=== PATIENT | female | born 1965 ===

== ENCOUNTER 2022-03-06 14:45 | Observation (INO) | payer OTHER ==
[2022-03-06] MEDS ORDERED: SODIUM CHLORIDE 0.9% 1,000 ML IV STA (14:47)
--- NOTE | 2022-03-06 15:00 | ED ---
Overdose HPI - General Chief Complaint: Overdose Stated Complaint: unresponsive Time Seen by Provider: 03/06/22 14:45 Source: EMS, RN notes reviewed Mode of arrival: EMS Limitations: no limitations - History of Present Illness Initial Comments: 56-year-old female with an apparent history of opioid abuse who was found unresponsive by her son at home. EMS was called. Patient was given IM as well as intranasal Narcan initially with no responsive upon arrival here she became more awake and alert but she denied any overdose or medications. No nausea no vomiting no focal deficits noted. No trauma no other complaint modifying factors at this time MD Complaint: other - Related Data Home Medications Medication Instructions Recorded Confirmed Baclofen [Lioresal] 20 mg PO HS PRN 03/06/22 03/06/22 Gabapentin [Neurontin] 400 mg PO TID PRN 03/06/22 03/06/22 Omeprazole 20 mg PO BID 03/06/22 03/06/22 PARoxetine HCL 40 mg PO DIRECTED 03/06/22 03/06/22 Triamcinolone 0.1% Cream [Kenalog 1 applicatio TOPICAL BID PRN 03/06/22 03/06/22 0.1% Cream] buPROPion XL [Wellbutrin XL] 150 mg PO DIRECTED 03/06/22 03/06/22 Allergies Allergy/AdvReac Type Severity Reaction Status Date / Time No Known Allergies Allergy Verified 03/06/22 18:51 Review of Systems ROS Statement: Those systems with pertinent positive or pertinent negative responses have been documented in the HPI. ROS Other: All systems not noted in ROS Statement are negative. Past Medical History Past Medical History: No Reported History History of Any Multi-Drug Resistant Organisms: None Reported Past Surgical History: No Surgical Hx Reported Past Psychological History: No Psychological Hx Reported Smoking Status: Current every day smoker Past Alcohol Use History: None Reported Past Drug Use History: Marijuana General Exam - General Exam Comments Initial Comments: Is a well-developed well-nourished awake alert but lethargic female Limitations: no limitations General appearance: alert, lethargic Head exam: Present: atraumatic, normocephalic, normal inspection Eye exam: Present: normal appearance, PERRL, EOMI. Absent: scleral icterus, conjunctival injection, periorbital swelling ENT exam: Present: normal exam, mucous membranes moist Neck exam: Present: normal inspection, full ROM, other (No stridor JVD or bruits). Absent: tenderness, meningismus, lymphadenopathy Respiratory exam: Present: normal lung sounds bilaterally. Absent: respiratory distress, wheezes, rales, rhonchi, stridor Cardiovascular Exam: Present: regular rate, normal rhythm, normal heart sounds. Absent: systolic murmur, diastolic murmur, rubs, gallop, clicks GI/Abdominal exam: Present: soft, normal bowel sounds. Absent: distended, tenderness, guarding, rebound, rigid Extremities exam: Present: normal inspection, full ROM, normal capillary refill. Absent: tenderness, pedal edema, joint swelling, calf tenderness Back exam: Present: normal inspection Neurological exam: Present: alert, oriented X3, CN II-XII intact Psychiatric exam: Present: normal affect, normal mood Skin exam: Present: warm, dry, intact, normal color. Absent: rash Course Vital Signs 03/06/22 03/06/22 03/06/22 14:46 15:54 16:00 Temperature 97.3 F L Pulse Rate 80 50 L 54 L Respiratory 18 14 16 Rate Blood Pressure 143/103 94/67 95/64 O2 Sat by Pulse 95 98 97 Oximetry 03/06/22 03/06/22 17:00 18:00 Temperature Pulse Rate 69 64 Respiratory 16 14 Rate Blood Pressure 90/70 92/55 O2 Sat by Pulse Oximetry - Reevaluation(s) Reevaluation #1: 03/06/22 20:11 I did reevaluate patient on multiple occasions she does respond to verbal stimulus he was noted to have a relatively low blood pressure but she did respond to fluids also warming. CT read by me was negative for acute processes as well as the chest x-ray. Patient does have a positive urine drug screen. The presentation and findings are consistent with overdose of medication. The patient is maintaining her vital signs and airway. She will be admitted I did discuss case with Dr. Clayton. On several occasions no family members were pre sent when I did reevaluate the patient. Medical Decision Making - Lab Data Result diagrams: 03/06/22 14:56 03/06/22 14:56 Lab Results 03/06/22 03/06/22 03/06/22 Range/Units 14:56 14:56 14:56 WBC 6.4 (3.8-10.6) k/uL RBC 4.59 (3.80-5.40) m/uL Hgb 14.6 (11.4-16.0) gm/dL Hct 43.5 (34.0-46.0) % MCV 94.8 (80.0-100.0) fL MCH 31.9 (25.0-35.0) pg MCHC 33.6 (31.0-37.0) g/dL RDW 12.8 (11.5-15.5) % Plt Count 146 L (150-450) k/uL MPV 9.0 Neutrophils % 73 % Lymphocytes % 18 % Monocytes % 6 % Eosinophils % 2 % Basophils % 1 % Neutrophils # 4.6 (1.3-7.7) k/uL Lymphocytes # 1.2 (1.0-4.8) k/uL Monocytes # 0.4 (0-1.0) k/uL Eosinophils # 0.1 (0-0.7) k/uL Basophils # 0.0 (0-0.2) k/uL PT 10.7 (9.0-12.0) sec INR 1.0 (<1.2) Sodium 141 (137-145) mmol/L Potassium 4.2 (3.5-5.1) mmol/L Chloride 110 H (98-107) mmol/L Carbon Dioxide 25 (22-30) mmol/L Anion Gap 6 mmol/L BUN 14 (7-17) mg/dL Creatinine 1.09 H (0.52-1.04) mg/dL Est GFR (CKD-EPI)AfAm 66 (>60 ml/min/1.73 sqM) Est GFR (CKD-EPI)NonAf 58 (>60 ml/min/1.73 sqM) Glucose 102 H (74-99) mg/dL Plasma Lactic Acid Jonatan (0.7-2.0) mmol/L Calcium 9.5 (8.4-10.2) mg/dL Total Bilirubin 0.7 (0.2-1.3) mg/dL AST 23 (14-36) U/L ALT 13 (4-34) U/L Alkaline Phosphatase 118 (38-126) U/L Creatine Kinase 58 (30-135) U/L Troponin I (0.000-0.034) ng/mL Total Protein 6.8 (6.3-8.2) g/dL Albumin 4.4 (3.5-5.0) g/dL Lipase 86 (23-300) U/L Urine Color Urine Appearance (Clear) Urine pH (5.0-8.0) Ur Specific [place] (1.001-1.035) Urine Protein (Negative) Urine Glucose (UA) (Negative) Urine Ketones (Negative) Urine Blood (Negative) Urine Nitrite (Negative) Urine Bilirubin (Negative) Urine Urobilinogen (<2.0) mg/dL Ur Leukocyte Esterase (Negative) Salicylates <1.0 mg/dL Urine Opiates Screen (NotDetected) Ur Oxycodone Screen (NotDetected) Urine Methadone Screen (NotDetected) Ur Propoxyphene Screen (NotDetected) Acetaminophen <10.0 ug/mL Ur Barbiturates Screen (NotDetected) U Tricyclic Antidepress (NotDetected) Ur Phencyclidine Scrn (NotDetected) Ur Amphetamines Screen (NotDetected) U Methamphetamines Scrn (NotDetected) U Benzodiazepines Scrn (NotDetected) Urine Cocaine Screen (NotDetected) U Marijuana (THC) Screen (NotDetected) Serum Alcohol <10 mg/dL 03/06/22 03/06/22 03/06/22 Range/Units 14:56 14:56 17:11 WBC (3.8-10.6) k/uL RBC (3.80-5.40) m/uL Hgb (11.4-16.0) gm/dL Hct (34.0-46.0) % MCV (80.0-100.0) fL MCH (25.0-35.0) pg MCHC (31.0-37.0) g/dL RDW (11.5-15.5) % Plt Count (150-450) k/uL MPV Neutrophils % % Lymphocytes % % Monocytes % % Eosinophils % % Basophils % % Neutrophils # (1.3-7.7) k/uL Lymphocytes # (1.0-4.8) k/uL Monocytes # (0-1.0) k/uL Eosinophils # (0-0.7) k/uL Basophils # (0-0.2) k/uL PT (9.0-12.0) sec INR (<1.2) Sodium (137-145) mmol/L Potassium (3.5-5.1) mmol/L Chloride (98-107) mmol/L Carbon Dioxide (22-30) mmol/L Anion Gap mmol/L BUN (7-17) mg/dL Creatinine (0.52-1.04) mg/dL Est GFR (CKD-EPI)AfAm (>60 ml/min/1.73 sqM) Est GFR (CKD-EPI)NonAf (>60 ml/min/1.73 sqM) Glucose (74-99) mg/dL Plasma Lactic Acid Jonatan 1.6 (0.7-2.0) mmol/L Calcium (8.4-10.2) mg/dL Total Bilirubin (0.2-1.3) mg/dL AST (14-36) U/L ALT (4-34) U/L Alkaline Phosphatase (38-126) U/L Creatine Kinase (30-135) U/L Troponin I <0.012 (0.000-0.034) ng/mL Total Protein (6.3-8.2) g/dL Albumin (3.5-5.0) g/dL Lipase (23-300) U/L Urine Color Yellow Urine Appearance Clear (Clear) Urine pH 5.5 (5.0-8.0) Ur Specific [place] 1.014 (1.001-1.035) Urine Protein Trace H (Negative) Urine Glucose (UA) Negative (Negative) Urine Ketones Negative (Negative) Urine Blood Negative (Negative) Urine Nitrite Negative (Negative) Urine Bilirubin Negative (Negative) Urine Urobilinogen <2.0 (<2.0) mg/dL Ur Leukocyte Esterase Negative (Negative) Salicylates mg/dL Urine Opiates Screen Not Detected (NotDetected) Ur Oxycodone Screen Not Detected (NotDetected) Urine Methadone Screen Detected H (NotDetected) Ur Propoxyphene Screen Not Detected (NotDetected) Acetaminophen ug/mL Ur Barbiturates Screen Not Detected (NotDetected) U Tricyclic Antidepress Not Detected (NotDetected) Ur Phencyclidine Scrn Not Detected (NotDetected) Ur Amphetamines Screen Not Detected (NotDetected) U Methamphetamines Scrn Not Detected (NotDetected) U Benzodiazepines Scrn Detected H (NotDetected) Urine Cocaine Screen Not Detected (NotDetected) U Marijuana (THC) Screen Detected H (NotDetected) Serum Alcohol mg/dL - EKG Data -: EKG Interpreted by Me EKG shows normal: sinus rhythm EKG Comments: EKG interpreted by me shows sinus bradycardia rate 56 IL interval 04[birth year]1969 QRS duration 85 daily since QTC 422/413 nonspecific T-wave configuration Disposition Clinical Impression: Drug overdose, Altered mental status, Hypotensive episode, Dehydration Disposition: ADMITTED IP TO THIS [facility] Condition: Fair Referrals: None,Stated [Primary Care Provider] - 1-2 days Decision Date: 03/06/22 Decision Time: 20:00
[2022-03-06 16:02] LABS: Basophils % (A) 1 %; Eosinophils # (A) 0.1 k/uL (0-0.7); Eosinophils % (A) 2 %; HCT 43.5 % (34.0-46.0); HGB 14.6 gm/dL (11.4-16.0); Lymphocytes # (A) 1.2 k/uL (1.0-4.8); Lymphocytes % (A) 18 %; MCH 31.9 pg (25.0-35.0); MCHC 33.6 g/dL (31.0-37.0); MCV 94.8 fL (80.0-100.0); Monocytes # (A) 0.4 k/uL (0-1.0); Monocytes % (A) 6 %; Neutrophils # (A) 4.6 k/uL (1.3-7.7); Neutrophils % (A) 73 %; Platelet Count 146 k/uL (150-450); RBC 4.59 m/uL (3.80-5.40); RDW 12.8 % (11.5-15.5); WBC 6.4 k/uL (3.8-10.6)
[2022-03-06 16:12] LABS: Prothrombin Time 10.7 sec (9.0-12.0)
--- NOTE | 2022-03-06 16:23 | XR ---
EXAMINATION TYPE: XR chest 1V portable DATE OF EXAM: 03/06/2022 COMPARISON: NONE HISTORY: Cough TECHNIQUE: Single view FINDINGS: Heart and mediastinum are normal. Lungs are clear of consolidation. There is slight coarsen ing of interstitial markings. There is suboptimal inspiration. There are chest leads. IMPRESSION: Suboptimal inspiration. Mild increased interstitial markings without consolidation. No he art failure.
[2022-03-06 16:41] LABS: ALT 13 U/L (4-34); AST 23 U/L (14-36); Acetaminophen <10.0 ug/mL; African American GFR (CKD) 66 (>60 ml/min/1.73 sqM); Albumin 4.4 g/dL (3.5-5.0); Alcohol <10 mg/dL; Alkaline Phosphatase 118 U/L (38-126); Anion Gap 6 mmol/L; Blood Urea Nitrogen 14 mg/dL (7-17); Calcium 9.5 mg/dL (8.4-10.2); Carbon Dioxide 25 mmol/L (22-30); Chloride 110 mmol/L (98-107); Creatine Kinase 58 U/L (30-135); Glucose 102 mg/dL (74-99); Lipase 86 U/L (23-300); Non-African American GFR(CKD) 58 (>60 ml/min/1.73 sqM); Potassium 4.2 mmol/L (3.5-5.1); Salicylate <1.0 mg/dL; Sodium 141 mmol/L (137-145); Total Bilirubin 0.7 mg/dL (0.2-1.3); Total Protein 6.8 g/dL (6.3-8.2)
--- NOTE | 2022-03-06 16:57 | CT ---
EXAMINATION TYPE: CT brain wo con DATE OF EXAM: 03/06/2022 COMPARISON: None HISTORY: Altered mental status CT DLP: 1192.4 mGycm Automated exposure control for dose reduction was used. Images of the brain obtained with no contrast. Ventricles of normal size. There is no mass effect or midline shift. No sign of intracranial hemorrha ge. Calvarium is intact. There is normal aeration of the mastoid sinuses. IMPRESSION: Negative unenhanced head CT scan.
[2022-03-06 17:23] LABS: Appearance,Urine Clear (Clear); Bilirubin,Urine Negative (Negative); Blood,Urine Negative (Negative); Color,Urine Yellow; Glucose,Urine (UA) Negative (Negative); Ketones,Urine Negative (Negative); Leukocyte Esterase,Urine Negative (Negative); Nitrite,Urine Negative (Negative); PH, Urine 5.5 (5.0-8.0); Protein,Urine Trace (Negative); Specific Gravity,Urine 1.014 (1.001-1.035); Urobilinogen,Urine <2.0 mg/dL (<2.0)
[2022-03-06 17:36] LABS: Amphetamine Screen,Urine Not Detected (NotDetected); Barbiturate Screen,Urine Not Detected (NotDetected); Benzodiazepines Screen,Urine Detected (NotDetected); Cocaine Screen,Urine Not Detected (NotDetected); Methadone Screen, Urine Detected (NotDetected); Opiate Screen,Urine Not Detected (NotDetected); Oxycodone Screen, Urine Not Detected (NotDetected); Phencyclidine Screen,Urine Not Detected (NotDetected); Tricyclic Antidepressant,Urine Not Detected (NotDetected); Urn Cannabinoid Scrn Detected (NotDetected)
[2022-03-06] MEDS ORDERED: NALOXONE 0.4 MG/ML 1 ML VIAL IVP STA (18:05)
[2022-03-06] MEDS ORDERED: NALOXONE 0.4 MG/ML 1 ML VIAL IV PRN (20:13)
[2022-03-06] MEDS ORDERED: SODIUM CHLORIDE 0.9% 1,000 ML IV SCH (20:15)
[2022-03-06] MEDS ORDERED: DEXTROSE 50% SYRINGE 50 ML IVP STA (23:17)
[2022-03-06 23:18] LABS: Glucose,Whole Blood 60 mg/dL (70-110)
[2022-03-06 23:31] LABS: Glucose,Whole Blood 57 mg/dL (70-110)
[2022-03-06 23:48] LABS: Glucose,Whole Blood 70 mg/dL (70-110)
[2022-03-06 23:55] LABS: ABG Base Excess -0.5 mmol/L; ABG HCO3 25 mmol/L (21-25); ABG Oxygen Saturation 93.5 % (94-97); ABG PCO2 44 mmHg (35-45); ABG PH 7.36 (7.35-7.45); ABG PO2 65 mmHg (83-108); ABG TCO2 26 mmol/L (19-24); Allen Test Performed? Yes
--- NOTE | 2022-03-07 00:26 | P.HPIM ---
History of Present Illness H&P Date: 03/06/22 Chief Complaint: overdose 56 year old female , brought in by EMS after son found her unresponsive , he had concerns regarding seizures. EMS did give her narcan IM and intranasally en route with some increase responsiveness , she had to receive another dose while inthe ED , she continued to be groggy. she does not provide any meaningful history son over the phone, admits to history of heroin addiction, and currently taking benzo, and she is an active smoker, he is not sure what she could have taken , he reports concerns regarding possibility of seizure like activity, however, he is not sure. blood work over all unremarkable urine drug screen positive for methadone, benzo, marijuana alcohol, tylenol and salicylate level negative there is possibility of some social stressors, and depression. there is no clear evidence of suicidal attempt, but could not be completely ruled out. patient is reportedly depressed and currently visiting her son in [place] Review of Systems ROS unobtainable: due to mental status Past Medical History Past Medical History: No Reported History History of Any Multi-Drug Resistant Organisms: None Reported Past Surgical History: No Surgical Hx Reported Past Psychological History: No Psychological Hx Reported Smoking Status: Current every day smoker Past Alcohol Use History: None Reported Past Drug Use History: Marijuana - Past Family History family Family Medical History: Unable to Obtain Medications and Allergies Home Medications Medication Instructions Recorded Confirmed Type Baclofen [Lioresal] 20 mg PO HS PRN 03/06/22 03/06/22 History Gabapentin [Neurontin] 400 mg PO TID PRN 03/06/22 03/06/22 History Omeprazole 20 mg PO BID 03/06/22 03/06/22 History PARoxetine HCL 40 mg PO DIRECTED 03/06/22 03/06/22 History Triamcinolone 0.1% Cream [Kenalog 1 applicatio TOPICAL BID PRN 03/06/22 03/06/22 History 0.1% Cream] buPROPion XL [Wellbutrin XL] 150 mg PO DIRECTED 03/06/22 03/06/22 History Allergies Allergy/AdvReac Type Severity Reaction Status Date / Time No Known Allergies Allergy Verified 03/06/22 18:51 Physical Exam Vitals: Vital Signs Temp Pulse Resp BP Pulse Ox 03/06/22 18:00 64 14 92/55 03/06/22 17:00 69 16 90/70 03/06/22 16:00 54 L 16 95/64 97 03/06/22 15:54 50 L 14 94/67 98 03/06/22 14:46 97.3 F L 80 18 143/103 95 Intake and Output 03/06/22 03/06/22 03/06/22 06:59 14:59 22:59 Other: Weight 81.647 kg Constitutional: lethargic easily arousable, does not answer questions Eyes: Anicteric sclerae, moist conjunctiva, Pupils equal round reactive to light ENMT: NC/AT Oropharynx clear, no erythema, or exudates Neck: Supple, no masses, or JVD No carotid bruits No thyromegaly Lungs: Clear to auscultation Clear to percussion Normal respiratory effort, no accessory muscle use Cardiovascular: Heart regular in rate and rhythm, No murmurs, gallops, or rubs No peripheral edema Abdominal: Soft Nontender, no guarding, rebound or rigidity Abdomen moving with respiration Normoactive bowel sounds No hepatomegaly, No splenomegaly No palpable mass No abdominal wall hernia noted Skin: Normal temperature, tone, texture, turgor No induration No subcutaneous nodules No rash, lesions No ulcers Extremities: No digital cyanosis No clubbing Pedal pulses intact and symmetrical Radial pulses intact and symmetrical No calf tenderness Psychiatric: sleepy , easily arousable with verbal stimulation , does not answer any questions avoids eye contact Neuro unable to perform , does not cooperate, however moving all extremities spontaneously Lymphatics: no palpable cervical or supraclavicular , lymph nodes Results CBC & Chem 7: 03/06/22 14:56 03/06/22 14:56 Labs: Abnormal Lab Results - Last 24 Hours (Table) 03/06/22 03/06/22 03/06/22 Range/Units 14:56 14:56 17:11 Plt Count 146 L (150-450) k/uL Chloride 110 H (98-107) mmol/L Creatinine 1.09 H (0.52-1.04) mg/dL Glucose 102 H (74-99) mg/dL Urine Protein Trace H (Negative) Urine Methadone Screen Detected H (NotDetected) U Benzodiazepines Scrn Detected H (NotDetected) U Marijuana (THC) Screen Detected H (NotDetected) Assessment and Plan Assessment: drug overdose acute metabolic encephalopathy could not rule out suicidal attempt bed side sitter for safety psych consult seizure precautions s/p narcan ABG reviewed continue supportive care narcan PRN as needed CT brain no acute pathology full code DVT PPX heparin sc tid
[2022-03-07] MEDS ORDERED: DEXTROSE 50% SYRINGE 50 ML IVP ONE (02:09)
[2022-03-07 02:12] LABS: Glucose,Whole Blood 66 mg/dL (70-110)
[2022-03-07] MEDS: DEXTROSE 5%-0.45% NACL 1,000 ML IV SCH ×2 (02:28→14:16)
[2022-03-07 02:31] LABS: Glucose,Whole Blood 122 mg/dL (70-110)
[2022-03-07 03:31] LABS: Glucose,Whole Blood 109 mg/dL (70-110)
[2022-03-07 04:33] LABS: Glucose,Whole Blood 99 mg/dL (70-110)
[2022-03-07 05:31] LABS: Glucose,Whole Blood 91 mg/dL (70-110)
[2022-03-07 06:31] LABS: Glucose,Whole Blood 99 mg/dL (70-110)
[2022-03-07] MEDS: HEPARIN SODIUM,PORCINE/PF 5,000 UNIT/0.5 ML SYRINGE SQ SCH ×3 (09:03→23:57)
[2022-03-07] MEDS: LIDOCAINE 5% PATCH TOPICAL SCH (10:21)
[2022-03-07 11:48] LABS: Glucose,Whole Blood 109 mg/dL (70-110)
--- NOTE | 2022-03-07 12:10 | P.PN ---
Subjective Progress Note Date: 03/07/22 Principal diagnosis: overdose Hospital Course: 56-year-old female with history of possible depression presented with unresponsiveness and altered mental status. Patient also has a history of heroin addiction and has been taking benzos at home. She last remember being at her son's house, and taking Xanax and possible opiates. She claims that she had no thoughts of harming herself. Urine drug screen positive for methadone, benzos, marijuana. Psychiatry evaluation pending. CT head showed no acute abnormalities. Subjective: Patient seen and examined at bedside. No acute events overnight. She still feels groggy, but a little alert. She denies any chest pain, shortness of breath, abdominal pain, urinary or bowel complaints. Pertinent positives and negatives as discussed above, a complete review of systems was performed and all other systems are negative. Vitals Signs Reviewed. General: nontoxic, no distress, appears at stated age Derm: warm, dry Head: atraumatic, normocephalic, symmetric Eyes: EOMI, no lid lag, anicteric sclera Mouth: no lip lesion, mucus membranes moist Cardiovascular: S1S2 reg, no murmur Lungs: CTA bilateral, no rhonchi, no rales , no accessory muscle use Abdominal: soft, nontender to palpation, no guarding, no appreciable organomegaly Ext: no gross muscle atrophy, no edema, no contractures Neuro: CN II-XI grossly intact, no focal neuro deficits Psych: Appears somnolent Assessment and Plan: Drug overdose, likely unintentional Acute metabolic encephalopathy - resolving -Bedside sitter -Psychiatry consult -Seizure precautions -Supportive care -Narcan when necessary -CT head normal -Appreciated psychiatry recommendations with regards to depression medications DVT ppx: Subcutaneous heparin Code status: Full Code Anticipated discharge place: Pending psychiatry evaluation Anticipated discharge time: Pending clinical course Objective - Vital Signs Vital signs: Vital Signs Temp 97.7 F 03/07/22 08:55 Pulse 84 03/07/22 09:35 Resp 16 03/07/22 09:35 BP 130/84 03/07/22 08:55 Pulse Ox 94 L 03/07/22 08:55 FiO2 Intake & Output 03/06/22 03/07/22 03/07/22 18:59 06:59 18:59 Weight 81.647 kg 81.647 kg Other: # Voids 1 - Labs CBC & Chem 7: 03/06/22 14:56 03/06/22 14:56 Labs: Abnormal Lab Results - Last 24 Hours (Table) 03/06/22 03/06/22 03/06/22 Range/Units 14:56 14:56 17:11 Plt Count 146 L (150-450) k/uL ABG pO2 (83-108) mmHg ABG Total CO2 (19-24) mmol/L ABG O2 Saturation (94-97) % Chloride 110 H (98-107) mmol/L Creatinine 1.09 H (0.52-1.04) mg/dL Glucose 102 H (74-99) mg/dL POC Glucose (mg/dL) (70-110) mg/dL Urine Protein Trace H (Negative) Urine Methadone Screen Detected H (NotDetected) U Benzodiazepines Scrn Detected H (NotDetected) U Marijuana (THC) Screen Detected H (NotDetected) 03/06/22 03/06/22 03/06/22 Range/Units 23:15 23:29 23:50 Plt Count (150-450) k/uL ABG pO2 65 L (83-108) mmHg ABG Total CO2 26 H (19-24) mmol/L ABG O2 Saturation 93.5 L (94-97) % Chloride (98-107) mmol/L Creatinine (0.52-1.04) mg/dL Glucose (74-99) mg/dL POC Glucose (mg/dL) 60 L 57 L (70-110) mg/dL Urine Protein (Negative) Urine Methadone Screen (NotDetected) U Benzodiazepines Scrn (NotDetected) U Marijuana (THC) Screen (NotDetected) 03/07/22 03/07/22 Range/Units 02:06 02:24 Plt Count (150-450) k/uL ABG pO2 (83-108) mmHg ABG Total CO2 (19-24) mmol/L ABG O2 Saturation (94-97) % Chloride (98-107) mmol/L Creatinine (0.52-1.04) mg/dL Glucose (74-99) mg/dL POC Glucose (mg/dL) 66 L 122 H (70-110) mg/dL Urine Protein (Negative) Urine Methadone Screen (NotDetected) U Benzodiazepines Scrn (NotDetected) U Marijuana (THC) Screen (NotDetected)
[2022-03-07] MEDS ORDERED: ONDANSETRON 4 MG/2 ML VIAL IVP PRN (12:35)
[2022-03-07] MEDS: PANTOPRAZOLE 40 MG TABLET PO SCH (14:14)
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
[2022-03-07 16:45] LABS: Glucose,Whole Blood 107 mg/dL (70-110)
[2022-03-07 19:58] LABS: Glucose,Whole Blood 93 mg/dL (70-110)
[2022-03-08] MEDS: DEXTROSE 5%-0.45% NACL 1,000 ML IV SCH ×2 (05:57→17:07)
[2022-03-08 05:58] LABS: Glucose,Whole Blood 96 mg/dL (70-110)
[2022-03-08] MEDS: PANTOPRAZOLE 40 MG TABLET PO SCH (06:35)
[2022-03-08 08:05] VITALS: RESP 18; TEMP 98.1
[2022-03-08] MEDS: LIDOCAINE 5% PATCH TOPICAL SCH (08:05)
[2022-03-08] MEDS: HEPARIN SODIUM,PORCINE/PF 5,000 UNIT/0.5 ML SYRINGE SQ SCH ×2 (08:06→17:07)
[2022-03-08 11:25] LABS: Glucose,Whole Blood 87 mg/dL (70-110)
[2022-03-08] MEDS ORDERED: PAROXETINE HCL 40 MG PO SCH (14:00)
[2022-03-08] MEDS ORDERED: buPROPion XL 150 MG TAB.ER.24H PO SCH (14:00)
--- NOTE | 2022-03-08 14:00 | P.PN ---
Subjective Progress Note Date: 03/08/22 Principal diagnosis: overdose Hospital Course: 56-year-old female with history of mood disorder presented with unresponsiveness and altered mental status. Patient also has a history of heroin addiction and has been taking benzos at home. She last remember being at her son's house, and taking Xanax and possible opiates. She claims that she had no thoughts of harmi ng herself. Urine drug screen positive for methadone, benzos, marijuana. Per nursing, patient's son found her unresponsive with a weak pulse, and he did initiate CPR as well. She was not pulseless at any point. Per report, patient didn't respond to Narcan by EMS. Psychiatry evaluation, no further inpatient psychiatric therapy needed. CT head showed no acute abnormalities. Subjective: Patient seen and examined at bedside. No acute events overnight. She still feeling nauseous whenever she tries to eat. She denies any chest pain, shortness of breath, abdominal pain, urinary or bowel complaints. Pertinent positives and negatives as discussed above, a complete review of systems was performed and all other systems are negative. Vitals Signs Reviewed. General: nontoxic, no distress, appears at stated age Derm: warm, dry Head: atraumatic, normocephalic, symmetric Eyes: EOMI, no lid lag, anicteric sclera Mouth: no lip lesion, mucus membranes moist Cardiovascular: S1S2 reg, no murmur Lungs: CTA bilateral, no rhonchi, no rales , no accessory muscle use Abdominal: soft, nontender to palpation, no guarding, no appreciable organomegaly Ext: no gross muscle atrophy, no edema, no contractures Neuro: CN II-XI grossly intact, no focal neuro deficits Psych: Appears somnolent Assessment and Plan: Drug overdose, likely unintentional Acute metabolic encephalopathy -resolved Polysubstance abuse -Psychiatry consult, no need for inpatient psychiatry admission -Seizure precautions -Supportive care -Narcan when necessary -CT head normal Mood disorder -Restarted bupropion and paroxetine Nausea -When necessary Zofran -Encourage oral intake DVT ppx: Subcutaneous heparin Code status: Full Code Anticipated discharge place: Home Anticipated discharge time: When nausea subsides Objective - Vital Signs Vital signs: Vital Signs Temp 98.1 F 03/08/22 08:01 Pulse 66 03/08/22 12:07 Resp 18 03/08/22 12:07 BP 151/74 03/08/22 12:07 Pulse Ox 98 03/08/22 12:07 FiO2 21 03/07/22 19:33 Intake & Output 03/07/22 03/08/22 03/08/22 18:59 06:59 18:59 Intake Total 650 Output Total 500 Balance 150 Intake: Intake, IV Titration 600 Amount Dextrose 5%-0.45% NaCl 1, 600 000 ml @ 75 mls/hr IV . [id number] [facility] Rx#:[id number] Oral 50 Output: Urine 500 Other: Voiding Method Bedside Commode Bedside Commode # Voids 2 - Labs CBC & Chem 7: 03/06/22 14:56 03/06/22 14:56
--- NOTE | 2022-03-08 15:27 | P.DS ---
Providers Date of admission: 03/06/22 20:13 Expected date of discharge: 03/08/22 Attending physician: Pratibha Summers MD Consults: 03/07/22 00:26 Consult Physician Routine Consulting Provider: Randall Hunter Consult Reason/Comments: Drug overdose, rule out suicidal Do you want consulting provider notified?: Yes, Notify in am Primary care physician: Stated None Hospital Course: Discharge Diagnosis: Unintentional drug overdose Acute metabolic encephalopathy Polysubstance abuse Mood disorder Nausea Hospital Course: 56-year-old female with history of mood disorder presented with unresponsiveness and altered mental status. Patient also has a history of heroin addiction and has been taking benzos at home. She last remember being at her son's house, and taking Xanax and possible opiates. She claims that she had no thoughts of harming herself. Urine drug screen positive for methadone, benzos, marijuana. Per nursing, patient's son found her unresponsive with a weak pulse, and he did initiate CPR as well. She was not pulseless at any point. Per report, patient didn't respond to Narcan by EMS. Psychiatry evaluation, no further inpatient psychiatric therapy needed. CT head showed no acute abnormalities. For chest pain secondary to compressions, patient will be discharged with lidocaine patch. Her nausea was improving at discharge, patient able to tolerate oral diet. Patient seen and examined at bedside. Vital signs reviewed and stable. General: nontoxic, no distress, appears at stated age Derm: warm, dry Head: atraumatic, normocephalic, symmetric Eyes: EOMI, no lid lag, anicteric sclera Mouth: no lip lesion, mucus membranes moist Cardiovascular: S1S2 reg, no murmur Lungs: CTA bilateral, no rhonchi, no rales , no accessory muscle use Abdominal: soft, nontender to palpation, no guarding, no appreciable organomegaly Ext: no gross muscle atrophy, no edema, no contractures Neuro: CN II-XI grossly intact, no focal neuro deficits Psych: Alert, oriented, appropriate affect A total of 37 minutes of time were spent preparing this complex discharge summary. Patient was discharged on 03/08/22 at 14:48. Patient Condition at Discharge: Stable Plan - Discharge Summary Discharge Rx Participant: No New Discharge Prescriptions: New Lidocaine 5% Patch [Lidoderm 5% Patch] 1 patch TOPICAL DAILY #7 patch Continue Omeprazole 20 mg PO BID buPROPion XL [Wellbutrin XL] 150 mg PO DIRECTED Triamcinolone 0.1% Cream [Kenalog 0.1% Cream] 1 applicatio TOPICAL BID PRN PRN Reason: Rash PARoxetine HCL 40 mg PO DIRECTED Discontinued Gabapentin [Neurontin] 400 mg PO TID PRN PRN Reason: nerve pain Baclofen [Lioresal] 20 mg PO HS PRN PRN Reason: Muscle Spasm Discharge Medication List Omeprazole 20 mg PO BID 03/06/22 [History] PARoxetine HCL 40 mg PO DIRECTED 03/06/22 [History] Triamcinolone 0.1% Cream [Kenalog 0.1% Cream] 1 applicatio TOPICAL BID PRN 03/06/22 [History] buPROPion XL [Wellbutrin XL] 150 mg PO DIRECTED 03/06/22 [History] Lidocaine 5% Patch [Lidoderm 5% Patch] 1 patch TOPICAL DAILY #7 patch 03/08/22 [Rx] Follow up Appointment(s)/Referral(s): None,Stated [Primary Care Provider] - 1-2 days Patient Instructions/Handouts: Polysubstance Abuse (ED) Activity/Diet/Wound Care/Special Instructions: Please see your PCP and psychiatrist. Discharge Disposition: HOME SELF-CARE
[2022-03-08 16:46] LABS: Glucose,Whole Blood 94 mg/dL (70-110)
[2022-03-08 18:35] VITALS: BP 144/88; PULSE 77
== END 2022-03-08 20:48 | disposition home or self-care (01) ==
LOC: EC 14:45 → 3SCARD 20:13 → INTOOBSV 20:13 → 3SCARD 21:06 → UNDODISIN 03-08 20:48
PROVIDERS: ADMIT Internal Medicine; ATTEND Internal Medicine
DX: G93.41 Metabolic encephalopathy (principal); T40.3X1A Poisoning by methadone, accidental (unintentional), initial encounter; T42.4X1A Poisoning by benzodiazepines, accidental (unintentional), initial encounter; E86.0 Dehydration; F17.200 Nicotine dependence, unspecified, uncomplicated; R41.82 Altered mental status, unspecified; R11.0 Nausea; F11.20 Opioid dependence, uncomplicated; F13.10 Sedative, hypnotic or anxiolytic abuse, uncomplicated; F12.10 Cannabis abuse, uncomplicated; F39 Unspecified mood [affective] disorder; Z79.899 Other long term (current) drug therapy; Z56.0 Unemployment, unspecified; Z81.1 Family history of alcohol abuse and dependence; Z81.8 Family history of other mental and behavioral disorders; Z82.0 Family history of epilepsy and other diseases of the nervous system
CPT/HCPCS: 96360; 96361; 99285; 36415; 36600; 94760; 93005; 80053; 82550; 82805; 83605; 83690; 84484; 85025; 85610; 81003; 80306; 80143; 80179; 71045; 70450; G0378 ×3; G0480; J2405; J1644 ×2; 80320